=== PATIENT | female | born 1935 | race Caucasian/White ===

== ENCOUNTER → 2018-04-13 | Outpatient (CLI) | payer MEDICARE, OTHER ==
[~2018-04-13] MED LIST: ALBIPROI INH; ALBU3IS INH; ALBU90OI; AMOCLA500 PO; AMOCLA875 PO; ASPI81CH PO; AZIT250 PO; AZIT500 PO; BECL80OI INH; CALC1.25T; CARV6.25 PO; CEFTIN PO; DIGO.125 PO; DILT240ER; DULERA 200 MCG/13 GM INH; FURO20; FURO40 PO; HYDACE5 PO; INHALER FOR COPD; IPRAOI; LEVO750 PO; LISI5 PO; METPRE4DP PO; MUSCLE RELAXER; Mucinex Dm Tab1 EAC1 PO; Norco 5-325 Ta1 EACH PO; OMEP20ER PO; POTA10T PO; POTCHL10ER; PRED20 PO; PROM25 PO; TIOT18; TIOT18 IH; TOCO400; TUDORZA PRESS400 MCG IH; [UNRECOGNIZED DRUG - CODE]
[2018-04-13 12:27] LABS: BASOPHILS ABSOLUTE AUTO 0.05 K/mm3 (0.00-0.23); BASOPHILS PERCENT AUTO 1 % (0-2); EOSINOPHILS ABSOLUTE AUTO 0.07 K/mm3 (0.00-0.68); EOSINOPHILS PERCENT AUTO 1 % (0-6); Hematocrit 36.3 % (33.0-51.0); Hemoglobin 11.1 g/dL (11.5-16.0); IMMATURE GRAN ABSOLUTE AUTO 0.08 K/mm3 (0.00-0.10); IMMATURE GRAN PERCENT AUTO 1 % (0-1); LYMPHOCYTES ABSOLUTE AUTO 2.56 K/mm3 (0.84-5.20); LYMPHOCYTES PERCENT AUTO 29 % (21-46); MONOCYTES PERCENT AUTO 6 % (4-13); Mean Corpuscular HGB 24.1 pg (26.0-34.0); Mean Corpuscular HGB Conc 30.6 g/dL (31.5-36.5); Mean Corpuscular Volume 79 fL (80-100); NEUTROPHILS ABSOLUTE AUTO 5.52 K/mm3 (1.96-9.15); NEUTROPHILS PERCENT AUTO 63 % (41-73); Platelet Count 353 K/mm3 (150-400); RDW Standard Deviation 45.8 fL (35.1-46.3); White Blood Cell Count 8.78 K/mm3 (4.00-11.30)
[2018-04-13 13:13] LABS: CPK Creatine Kinase 65 U/L (26-193); Troponin I <0.015 ng/mL (0.000-0.040)
[2018-04-13 13:42] LABS: Alanine Aminotransfer (ALT/SGP 16 U/L (12-78); Albumin, Blood 3.2 g/dL (3.4-5.0); Albumin/Globulin Ratio 0.8 (0.8-1.8); Alk Phos 103 U/L (50-136); Anion Gap 8 mmol/L (6-16); Aspartate Aminotrans (AST/SGOT 14 U/L (12-37); Bilirubin, Total 0.2 mg/dL (0.1-1.0); Blood Urea Nitrogen 13 mg/dL (8-24); Bun/Creatinine Ratio 16.8 (12.0-20.0); CO2, Blood 28 mmol/L (21-32); Chloride, Blood 105 mmol/L (98-108); Creatinine, Blood 0.78 mg/dL (0.40-1.00); Globulin, Blood 3.9 g/dL (2.2-4.0); Glomerular Filtration Rate >60 (60-); Glucose, Blood 107 mg/dL (70-99); Potassium, Blood 3.7 mmol/L (3.5-5.5); Sodium, Blood 141 mmol/L (136-145); Total Protein, Blood 7.1 g/dL (6.4-8.2)
[2018-04-13 16:16] LABS: Percent Saturation 5.7 % (15.0-50.0)
== END | disposition home or self-care (01) ==
LOC: LAB EV 12:20 → LAB SHORT 12:20
PROVIDERS: General Practice
DX: D64.9 Anemia, unspecified (principal); R06.02 Shortness of breath
CPT/HCPCS: 80053; 82550; 83540; 83550; 83880; 84484; 85025

== ENCOUNTER → 2019-07-17 | Outpatient (CLI) | payer MEDICARE, OTHER ==
[2019-07-17 15:43] LABS: BASOPHILS ABSOLUTE AUTO 0.05 K/mm3 (0.00-0.23); BASOPHILS PERCENT AUTO 1 % (0-2); EOSINOPHILS ABSOLUTE AUTO 0.06 K/mm3 (0.00-0.68); EOSINOPHILS PERCENT AUTO 1 % (0-6); Hematocrit 36.1 % (33.0-51.0); Hemoglobin 11.3 g/dL (11.5-16.0); IMMATURE GRAN ABSOLUTE AUTO 0.04 K/mm3 (0.00-0.10); IMMATURE GRAN PERCENT AUTO 0 % (0-1); LYMPHOCYTES ABSOLUTE AUTO 2.79 K/mm3 (0.84-5.20); LYMPHOCYTES PERCENT AUTO 27 % (21-46); MONOCYTES ABSOLUTE AUTO 0.62 K/mm3 (0.16-1.47); MONOCYTES PERCENT AUTO 6 % (4-13); Mean Corpuscular HGB 26.6 pg (26.0-34.0); Mean Corpuscular HGB Conc 31.3 g/dL (31.5-36.5); Mean Corpuscular Volume 85 fL (80-100); Mean Platelet Volume 11.2 fL (9.1-12.4); NEUTROPHILS ABSOLUTE AUTO 6.89 K/mm3 (1.96-9.15); NEUTROPHILS PERCENT AUTO 66 % (41-73); Platelet Count 337 K/mm3 (150-400); RDW Coefficient Variation 14.3 % (11.7-14.2); Red Blood Cell Count 4.25 M/mm3 (3.80-5.20); White Blood Cell Count 10.45 K/mm3 (4.00-11.30)
[2019-07-17 15:56] LABS: Alanine Aminotransfer (ALT/SGP 15 U/L (12-78); Albumin, Blood 3.7 g/dL (3.4-5.0); Alk Phos 113 U/L (40-126); Anion Gap 9 mmol/L (6-16); Aspartate Aminotrans (AST/SGOT 14 U/L (12-37); Bilirubin, Total 0.3 mg/dL (0.1-1.0); Blood Urea Nitrogen 10 mg/dL (8-24); Bun/Creatinine Ratio 11.4 (12.0-20.0); CO2, Blood 30 mmol/L (21-32); Calcium, Blood 8.9 mg/dL (8.5-10.1); Chloride, Blood 104 mmol/L (98-108); Creatinine, Blood 0.88 mg/dL (0.40-1.00); Globulin, Blood 3.7 g/dL (2.2-4.0); Glomerular Filtration Rate >60 (60-); Glucose, Blood 109 mg/dL (70-99); Potassium, Blood 3.2 mmol/L (3.5-5.5); Sodium, Blood 143 mmol/L (136-145); Total Protein, Blood 7.4 g/dL (6.4-8.2)
[2019-07-17 16:38] LABS: Digoxin (Lanoxin) 0.89 ug/mL (0.80-2.00)
== END ==
LOC: LAB EV 15:37 → LAB SHORT 15:37
PROVIDERS: Emergency Medicine
DX: R06.00 Dyspnea, unspecified (principal); Z79.899 Other long term (current) drug therapy
CPT/HCPCS: 80053; 80162; 85025

== ENCOUNTER 2020-01-14 19:14 | Emergency (ER) | payer MEDICARE, OTHER ==
[~2020-01-14] VITALS: Ht 162.6 cm; Wt 63.5 kg
[~2020-01-14 19:14] MED LIST changes: +ALBU90OI INH; +FAMO10 PO; +FLUT1DIS2 INH; +FURO20 PO; +ROFL500T PO
[2020-01-14 19:51] LABS: BASOPHILS ABSOLUTE AUTO 0.05 K/mm3 (0.00-0.23); BASOPHILS PERCENT AUTO 1 % (0-2); EOSINOPHILS ABSOLUTE AUTO 0.08 K/mm3 (0.00-0.68); EOSINOPHILS PERCENT AUTO 1 % (0-6); Hematocrit 29.6 % (33.0-51.0); Hemoglobin 7.8 g/dL (11.5-16.0); IMMATURE GRAN ABSOLUTE AUTO 0.04 K/mm3 (0.00-0.10); IMMATURE GRAN PERCENT AUTO 0 % (0-1); LYMPHOCYTES ABSOLUTE AUTO 1.94 K/mm3 (0.84-5.20); LYMPHOCYTES PERCENT AUTO 20 % (21-46); MONOCYTES ABSOLUTE AUTO 0.54 K/mm3 (0.16-1.47); MONOCYTES PERCENT AUTO 6 % (4-13); Mean Corpuscular HGB 18.1 pg (26.0-34.0); Mean Corpuscular HGB Conc 26.4 g/dL (31.5-36.5); Mean Corpuscular Volume 69 fL (80-100); Mean Platelet Volume 9.8 fL (9.1-12.4); NEUTROPHILS ABSOLUTE AUTO 7.02 K/mm3 (1.96-9.15); NEUTROPHILS PERCENT AUTO 73 % (41-73); Platelet Count 444 K/mm3 (150-400); RDW Standard Deviation 44.3 fL (35.1-46.3); Red Blood Cell Count 4.32 M/mm3 (3.80-5.20); White Blood Cell Count 9.67 K/mm3 (4.00-11.30)
[2020-01-14 20:16] LABS: Alanine Aminotransfer (ALT/SGP 15 U/L (12-78); Albumin, Blood 3.3 g/dL (3.4-5.0); Albumin/Globulin Ratio 0.9 (0.8-1.8); Alk Phos 96 U/L (50-136); Anion Gap 6 mmol/L (6-16); Aspartate Aminotrans (AST/SGOT 13 U/L (12-37); Bilirubin, Total 0.4 mg/dL (0.1-1.0); Blood Urea Nitrogen 8 mg/dL (8-24); Bun/Creatinine Ratio 10.4 (12.0-20.0); CO2, Blood 27 mmol/L (21-32); Calcium, Blood 8.8 mg/dL (8.5-10.1); Chloride, Blood 114 mmol/L (98-108); Creatinine, Blood 0.77 mg/dL (0.40-1.00); Globulin, Blood 3.5 g/dL (2.2-4.0); Glomerular Filtration Rate >60 (60-); Glucose, Blood 95 mg/dL (70-99); Potassium, Blood 3.8 mmol/L (3.5-5.5); Sodium, Blood 147 mmol/L (136-145); Total Protein, Blood 6.8 g/dL (6.4-8.2); Troponin I <0.015 ng/mL (0.000-0.040)
[2020-01-14] MEDS ORDERED: Prednisone20 MG PO (21:41)
== END 2020-01-14 22:02 | disposition home or self-care (01) ==
LOC: ER 19:14
PROVIDERS: Physician Assistant
DX: J44.9 Chronic obstructive pulmonary disease, unspecified (principal); K21.9 Gastro-esophageal reflux disease without esophagitis; E78.5 Hyperlipidemia, unspecified; I11.0 Hypertensive heart disease with heart failure; I50.9 Heart failure, unspecified; Z87.891 Personal history of nicotine dependence; Z88.8 Allergy status to other drugs, medicaments and biological substances; Z79.899 Other long term (current) drug therapy
CPT/HCPCS: 36415; 71045; 80053; 83880; 84484; 85025; 93005; 93010; 99285-25; J7512

== ENCOUNTER 2020-02-01 16:55 | Emergency (ER) | payer MEDICARE, OTHER ==
[~2020-02-01] VITALS: Ht 162.6 cm; Wt 63.5 kg
[~2020-02-01 16:55] MED LIST changes: -FURO20 PO; +Prednisone20 MG PO
[2020-02-01 21:29] LABS: Adenovirus Not Detected (NOT DETECT); Coronavirus 229E Not Detected (NOT DETECT); Coronavirus HKU1 Not Detected (NOT DETECT); Coronavirus NL63 Not Detected (NOT DETECT); Coronavirus OC43 Not Detected (NOT DETECT); SARS-Cov-2 (COVID-19), BioFire Not Detected (NOT DETECT)
[2020-02-01 21:30] LABS: Bordetella pertussis Not Detected (NOT DETECT); Chlamydophila pneumoniae Not Detected (NOT DETECT); Human Metapneumovirus Not Detected (NOT DETECT); Human Rhinovirus/Enterovirus Not Detected (NOT DETECT); Influenza A/2009-H1 Not Detected (NOT DETECT); Influenza A/H1 Not Detected (NOT DETECT); Influenza A/H3 Not Detected (NOT DETECT); Influenza B Not Detected (NOT DETECT); Mycoplasma pneumoniae Not Detected (NOT DETECT); Parainfluenza Virus 1 Not Detected (NOT DETECT); Parainfluenza Virus 2 Not Detected (NOT DETECT); Parainfluenza Virus 3 Not Detected (NOT DETECT); Parainfluenza Virus 4 Not Detected (NOT DETECT); Respiratory Syncytial Virus Not Detected (NOT DETECT)
[2020-02-01] MEDS ORDERED: Vibramycin100 MG PO (23:28)
[2020-02-01] MEDS ORDERED: Pepcid20 MG PO (23:28)
== END 2020-02-02 00:36 | disposition home or self-care (01) ==
LOC: ER 16:55
PROVIDERS: Emergency Medicine
DX: J18.9 Pneumonia, unspecified organism (principal); J44.0 Chronic obstructive pulmonary disease with (acute) lower respiratory infection; R10.84 Generalized abdominal pain; R79.89 Other specified abnormal findings of blood chemistry; E78.5 Hyperlipidemia, unspecified; I11.0 Hypertensive heart disease with heart failure; I50.9 Heart failure, unspecified; K21.9 Gastro-esophageal reflux disease without esophagitis; Z79.899 Other long term (current) drug therapy; Z79.52 Long term (current) use of systemic steroids; Z20.828 Contact with and (suspected) exposure to other viral communicable diseases
CPT/HCPCS: 0202U; 71260; 96361; 96374; 96375; 99285-25; A9270-GY; J2405; J7030; Q9967

== ENCOUNTER 2020-02-06 19:49 | Inpatient (IN) | payer MEDICARE, OTHER ==
[~2020-02-06] VITALS: Ht 162.6 cm; Wt 67.4 kg
[~2020-02-06 19:49] MED LIST changes: +Pepcid20 MG PO; +Vibramycin100 MG PO
[2020-02-06 20:23] LABS: BASOPHILS ABSOLUTE AUTO 0.03 K/mm3 (0.00-0.23); BASOPHILS PERCENT AUTO 0 % (0-2); EOSINOPHILS ABSOLUTE AUTO 0.04 K/mm3 (0.00-0.68); EOSINOPHILS PERCENT AUTO 0 % (0-6); Hematocrit 33.9 % (33.0-51.0); Hemoglobin 9.2 g/dL (11.5-16.0); IMMATURE GRAN ABSOLUTE AUTO 0.06 K/mm3 (0.00-0.10); IMMATURE GRAN PERCENT AUTO 0 % (0-1); LYMPHOCYTES ABSOLUTE AUTO 2.36 K/mm3 (0.84-5.20); LYMPHOCYTES PERCENT AUTO 17 % (21-46); MONOCYTES ABSOLUTE AUTO 0.84 K/mm3 (0.16-1.47); MONOCYTES PERCENT AUTO 6 % (4-13); Mean Corpuscular HGB 18.1 pg (26.0-34.0); Mean Corpuscular HGB Conc 27.1 g/dL (31.5-36.5); Mean Corpuscular Volume 67 fL (80-100); NEUTROPHILS ABSOLUTE AUTO 10.32 K/mm3 (1.96-9.15); NEUTROPHILS PERCENT AUTO 76 % (41-73); Platelet Count 556 K/mm3 (150-400); RDW Coefficient Variation 18.4 % (11.7-14.2); RDW Standard Deviation 42.7 fL (35.1-46.3); Red Blood Cell Count 5.09 M/mm3 (3.80-5.20); White Blood Cell Count 13.65 K/mm3 (4.00-11.30)
[2020-02-06 20:43] LABS: Alanine Aminotransfer (ALT/SGP 15 U/L (12-78); Albumin, Blood 3.4 g/dL (3.4-5.0); Alk Phos 104 U/L (50-136); Anion Gap 10 mmol/L (6-16); Aspartate Aminotrans (AST/SGOT 8 U/L (12-37); Bilirubin, Total 0.7 mg/dL (0.1-1.0); Blood Urea Nitrogen 17 mg/dL (8-24); Bun/Creatinine Ratio 23.8 (12.0-20.0); CO2, Blood 26 mmol/L (21-32); Calcium, Blood 9.1 mg/dL (8.5-10.1); Chloride, Blood 97 mmol/L (98-108); Creatinine, Blood 0.72 mg/dL (0.40-1.00); Globulin, Blood 3.5 g/dL (2.2-4.0); Glomerular Filtration Rate >60 (60-); Glucose, Blood 96 mg/dL (70-99); Potassium, Blood 3.6 mmol/L (3.5-5.5); Sodium, Blood 133 mmol/L (136-145); Total Protein, Blood 6.9 g/dL (6.4-8.2)
[2020-02-06] MEDS ORDERED: LANOXIN125 MCG PO (22:42)
[2020-02-06] MEDS ORDERED: POTA10T PO (22:43)
[2020-02-06] MEDS ORDERED: LISI5 PO (22:43)
[2020-02-06] MEDS ORDERED: FURO40 PO (22:43)
[2020-02-06] MEDS ORDERED: HYDROCODONE-AC1 EAC9 PO (22:44)
[2020-02-06] MEDS ORDERED: FLUT1DIS5 INH (22:44)
[2020-02-06] MEDS ORDERED: ALBU90OI INH (22:45)
[2020-02-06] MEDS ORDERED: REFRESH DIGITAL10 ML BOTHEYES (22:46)
[2020-02-06 23:39] LABS: Troponin I <0.015 ng/mL (0.000-0.040)
--- NOTE | 2020-02-06 23:39 | NUR ---
transfer report from [facility] on 84 year old female being admitted for bowel obstruction. PT has abd pain N & V. Await admission. Reported GDTR with PT asked if she can accompany to floor for admission process & history.
--- NOTE | 2020-02-07 04:25 | NUR ---
Elderly Female with bowel obstruction new admitted after CO abd pain & has mass on abd CT. Full code verified, blood consent signed by PT. PT poor historian did not bring current med list. [facility] [place] 2 adult Granddaughters. Forgetful but pleasant. Possible mets has bowel obstruction. Surgical consult called by ER DR per order notation. Unaccompanied to floor by Granddaughter who was with her in ER. 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 Skin intact clean & dry except for few dry scattered warty type scaly patches. On room air sats greater than 90% PT uses oxygen & neb tx PRN at home for COPD. Nausea & abd pain intermittant. Involve Family in DC plan. NPO. Fall precautions.
[2020-02-07 05:04] LABS: BASOPHILS ABSOLUTE AUTO 0.03 K/mm3 (0.00-0.23); BASOPHILS PERCENT AUTO 0 % (0-2); EOSINOPHILS ABSOLUTE AUTO 0.01 K/mm3 (0.00-0.68); EOSINOPHILS PERCENT AUTO 0 % (0-6); Hemoglobin 8.1 g/dL (11.5-16.0); IMMATURE GRAN ABSOLUTE AUTO 0.05 K/mm3 (0.00-0.10); IMMATURE GRAN PERCENT AUTO 1 % (0-1); LYMPHOCYTES PERCENT AUTO 20 % (21-46); MONOCYTES ABSOLUTE AUTO 0.52 K/mm3 (0.16-1.47); MONOCYTES PERCENT AUTO 5 % (4-13); Mean Corpuscular Volume 67 fL (80-100); NEUTROPHILS ABSOLUTE AUTO 7.58 K/mm3 (1.96-9.15); NEUTROPHILS PERCENT AUTO 74 % (41-73); Platelet Count 515 K/mm3 (150-400); RDW Coefficient Variation 18.2 % (11.7-14.2); Red Blood Cell Count 4.51 M/mm3 (3.80-5.20); White Blood Cell Count 10.19 K/mm3 (4.00-11.30)
[2020-02-07 05:25] LABS: Anion Gap 9 mmol/L (6-16); Blood Urea Nitrogen 16 mg/dL (8-24); Bun/Creatinine Ratio 20.9 (12.0-20.0); CO2, Blood 27 mmol/L (21-32); Calcium, Blood 8.3 mg/dL (8.5-10.1); Chloride, Blood 101 mmol/L (98-108); Creatinine, Blood 0.77 mg/dL (0.40-1.00); Glomerular Filtration Rate >60 (60-); Glucose, Blood 104 mg/dL (70-99); Potassium, Blood 3.6 mmol/L (3.5-5.5); Sodium, Blood 137 mmol/L (136-145)
--- NOTE | 2020-02-07 12:44 | NUR ---
Jeff Paws warming gown applied. Surgical site prepped with 2% Chlorhexidine cloth wipe. History, Chart, Medications and Allergies reviewed before start of procedure.Lungs clear T/O to Auscultation. Patient confirms NPO status and agrees with scheduled surgery. REPORT FROM OZ SANCHEZ RN.
--- NOTE | 2020-02-07 13:08 | NUR ---
PT HAD A SURGERY TODAY, AND WILL BE TRANSFERRED TO SURGICAL DEPARTMENT.
--- NOTE | 2020-02-07 14:30 | NUR ---
PT IS IN SURGERY CURRENTLY; RECVD REPORT FROM PREVIOUS RN ON MEDICAL FLOOR; PT'S BELONGINGS TRANSFERRED TO ROOM WELL TELEMETRY BOX
--- NOTE | 2020-02-07 17:45 | NUR ---
PT TRANSFERRED TO UNIT VIA OWN BED, FAMILY VISITING PT. PT HAS EPIDURAL, ASSESSED DRESSING WNL. DERMATOMES WITH SENSATION BEGINNING AT L1, T7-L1 NO SENSATION. BASAL RATE OF 6 ML HR ON EPIDURAL. PT AWAKEN AND ORIENTED TO X 4, STATES SHE FEELS NO PAIN IN ABDOMEN, ROLLS WELL FOR EPIDURAL ASSESSMENT, JERRY DRESSING INTACT WITH 4 SPOTS OF RED SHADOWING. ACEVES CATHETER PATENT AND DRAIING CLOUDY YELLOW URINE.
--- NOTE | 2020-02-08 06:37 | NUR ---
SHIFT SUMMARY: IRVIN AROUSES EASILY AND RESPONDS APPROPRIATELY. SHE DID REPORT SEEING "BUGS" IN HER ROOM THIS MORNING, BUT ALSO STATES THAT SHE UNDERSTANDS THEY ARE NOT REALLY THERE. VSS, NO ACUTE EVENTS OVERNIGHT. SHE REPORTS GOOD PAIN CONTROL WITH THE EPIDURAL. SHE USES THE OPERATIONS MANAGER/COORDINATOR WITHOUT DIFFICULTY. ILEOSTOMY PUTTING OUT LIQUID, BROWN STOOL. SHE COMPLAINS OF SORE THROAT AND DRY MOUTH, SWABS PROVIDED. JERRY TO MIDLINE WITH SMALL AMNT DRAINAGE. ACEVES DRAINING CLOUDY, YELLOW URINE. SHE IS ABLE TO MAKE HER NEEDS KNOWN, VERY PLEASANT AND COOPERATIVE. SHE IS LYING IN BED WITH THE CALL LIGHT IN REACH. WILL REPORT TO DAY SHIFT RN.
--- NOTE | 2020-02-08 07:25 | NUR ---
PT SLEEPING WAKES TO VERBAL STIMULI PT REPORTS SOME PAIN R/T HER THROAT FROM THE NGT MIN DRAINAGE IN CANNISTER ANESTHESIA BY EARLIER
--- NOTE | 2020-02-08 09:31 | NUR ---
PT'S JOSE CALLLED UPDATE GIVEN
--- NOTE | 2020-02-08 11:40 | NUR ---
DR CENTENO BY TO SEE PT
--- NOTE | 2020-02-08 14:30 | NUR ---
PT OOB IN RECLINER RESTING
--- NOTE | 2020-02-08 16:00 | NUR ---
ASSISTED INTO BED
--- NOTE | 2020-02-09 18:10 | NUR ---
SUMMARY: PT IS POD2 R HEMICOLECTOMY WITH ILEOSTOMY. NO ACUTE CHANGE TODAY. VSS, A/O. MOVES WELL FROM BED TO RECLINER. EPIDURAL CONTINUES TO BE WNL, AND MANAGING PAIN WELL. PLAN TO DC EPIDURAL TOMORROW. SURGICAL SITES WNL. BROWN LIQ STOOL FROM OSTOMY. PT ABLE TO EAT CLEAR LIQ, PLAN TO ADVANCE DIET SLOWLY PER ORDER. PT HAS DENIED N/V. NO ACUTE SAFETY CONCERNS AT THIS TIME. WILL REPORT TO HIMA GREGORIO.
[2020-02-10 05:39] LABS: BASOPHILS ABSOLUTE AUTO 0.04 K/mm3 (0.00-0.23); BASOPHILS PERCENT AUTO 1 % (0-2); EOSINOPHILS ABSOLUTE AUTO 0.11 K/mm3 (0.00-0.68); EOSINOPHILS PERCENT AUTO 1 % (0-6); Hematocrit 29.6 % (33.0-51.0); Hemoglobin 7.8 g/dL (11.5-16.0); IMMATURE GRAN ABSOLUTE AUTO 0.05 K/mm3 (0.00-0.10); IMMATURE GRAN PERCENT AUTO 1 % (0-1); LYMPHOCYTES ABSOLUTE AUTO 1.68 K/mm3 (0.84-5.20); LYMPHOCYTES PERCENT AUTO 22 % (21-46); MONOCYTES ABSOLUTE AUTO 0.52 K/mm3 (0.16-1.47); MONOCYTES PERCENT AUTO 7 % (4-13); Mean Corpuscular HGB 18.1 pg (26.0-34.0); Mean Corpuscular HGB Conc 26.4 g/dL (31.5-36.5); Mean Corpuscular Volume 69 fL (80-100); Mean Platelet Volume 9.6 fL (9.1-12.4); NEUTROPHILS PERCENT AUTO 69 % (41-73); Platelet Count 369 K/mm3 (150-400); RDW Coefficient Variation 18.5 % (11.7-14.2); RDW Standard Deviation 45.2 fL (35.1-46.3)
[2020-02-10 05:59] LABS: Anion Gap 6 mmol/L (6-16); Blood Urea Nitrogen 7 mg/dL (8-24); Bun/Creatinine Ratio 10.9 (12.0-20.0); CO2, Blood 26 mmol/L (21-32); Calcium, Blood 8.1 mg/dL (8.5-10.1); Chloride, Blood 110 mmol/L (98-108); Creatinine, Blood 0.64 mg/dL (0.40-1.00); Glomerular Filtration Rate >60 (60-); Glucose, Blood 98 mg/dL (70-99); Potassium, Blood 3.5 mmol/L (3.5-5.5); Sodium, Blood 142 mmol/L (136-145)
--- NOTE | 2020-02-10 06:00 | NUR ---
SHIFT SUMMARY AAO X4, BUT IS VERY [place]. STATES PAIN REMAINS AT 2/10, EPIDURAL CONT WITH DEMAND INFUSING PER MD ORDERS, WILL BE TURNED OFF AT 0700HRS PER NURSE NOTIFY ORDER. IT IS TO BE D/C'D TODAY. ACEVES CATH IS TO BE D/C'D WELL. STATES THAT SHE HAS RESTED WELL LYING IN THE CHAIR THIS SHIFT, AND IS FEELING GOOD. DENIES FURTHER NEEDS OR WANTS AT THIS TIME. SAFETY MEASURES IN PLACE. WILL CONTINUE TO MONITOR AND GIVE HAND OFF TO ONCOMING SHIFT USING SBAR.
--- NOTE | 2020-02-10 07:44 | NUR ---
EPIDURAL INFUSION STOPED AT THIS TIME PER ORDER
--- NOTE | 2020-02-10 14:34 | NUR ---
DR. AUTUMN ALLRED'D EPIDURAL AT ABOUT 1130. KETAN ALLRED'D AT 1430, AWAITING 1ST VOID.
--- NOTE | 2020-02-10 17:18 | NUR ---
SUMMARY: PT IS POD3 R [place] COLECTOMY. NO ACUTE CHANGE TODAY. VSS, HAS SLEPT OFF AND ON TODAY, AWAKENS EASILY. PT IS OFTEN FORGETFUL, NEEDS REORIENTED, BED ALARM ON FOR SAFETY. SURGICAL SITES WNL. ILOSTOMY DRAINING BROWN LIQ STOOL, AND. PT TOLERATING FULL LIQ DIET TODAY, DENIES N/V, OK TO ADVANCE. PT HAS VOIDED SINCE ACEVES REMOVAL, GETS TO COMMODE WITH 1 ASSIST. PAIN SEEMS TO BE MANAGED WITH 1 NARCO Q4. NO ACUTE SAFETY CONCERNS, WILL REPORT TO HIMA GREGORIO.
[2020-02-11 04:50] LABS: BASOPHILS ABSOLUTE AUTO 0.05 K/mm3 (0.00-0.23); BASOPHILS PERCENT AUTO 1 % (0-2); EOSINOPHILS ABSOLUTE AUTO 0.12 K/mm3 (0.00-0.68); EOSINOPHILS PERCENT AUTO 1 % (0-6); Hematocrit 28.7 % (33.0-51.0); Hemoglobin 7.7 g/dL (11.5-16.0); IMMATURE GRAN ABSOLUTE AUTO 0.05 K/mm3 (0.00-0.10); IMMATURE GRAN PERCENT AUTO 1 % (0-1); LYMPHOCYTES ABSOLUTE AUTO 1.98 K/mm3 (0.84-5.20); LYMPHOCYTES PERCENT AUTO 18 % (21-46); MONOCYTES ABSOLUTE AUTO 0.57 K/mm3 (0.16-1.47); MONOCYTES PERCENT AUTO 5 % (4-13); Mean Corpuscular HGB 18.2 pg (26.0-34.0); Mean Corpuscular HGB Conc 26.8 g/dL (31.5-36.5); Mean Corpuscular Volume 68 fL (80-100); Mean Platelet Volume 9.7 fL (9.1-12.4); NEUTROPHILS PERCENT AUTO 75 % (41-73); Platelet Count 368 K/mm3 (150-400); RDW Coefficient Variation 18.4 % (11.7-14.2); RDW Standard Deviation 44.2 fL (35.1-46.3); Red Blood Cell Count 4.24 M/mm3 (3.80-5.20); White Blood Cell Count 10.87 K/mm3 (4.00-11.30)
[2020-02-11 05:07] LABS: Anion Gap 5 mmol/L (6-16); Blood Urea Nitrogen 6 mg/dL (8-24); Bun/Creatinine Ratio 9.9 (12.0-20.0); CO2, Blood 27 mmol/L (21-32); Calcium, Blood 7.9 mg/dL (8.5-10.1); Chloride, Blood 111 mmol/L (98-108); Creatinine, Blood 0.61 mg/dL (0.40-1.00); Glomerular Filtration Rate >60 (60-); Glucose, Blood 104 mg/dL (70-99); Potassium, Blood 3.7 mmol/L (3.5-5.5); Sodium, Blood 143 mmol/L (136-145)
--- NOTE | 2020-02-11 06:09 | NUR ---
SHIFT SUMMARY AAO X4, BUT IS VERY [place]. CAEVES CATH WAS D/C'D, SHE IS URINATING IN COMMODE AFTER AMBULATING. STATES THAT SHE HAS RESTED WELL SIINCE BEING MOVED TO ROOM 226, AND IS FEELING GOOD. MIDLINE DRESSING IS C/D/I, DRESSING IS DECOMPRESSED. DENIES FURTHER NEEDS OR WANTS AT THIS TIME. SAFETY MEASURES IN PLACE. WILL CONTINUE TO MONITOR AND GIVE HAND OFF TO ONCOMING SHIFT USING SBAR.
--- NOTE | 2020-02-11 12:02 | NUR ---
PT GAVE THIS SRN PERMISSION TO PROVIDE CARE ON 02/11/20.
--- NOTE | 2020-02-11 18:39 | NUR ---
SHIFT SUMMARY SPOKE TO GRANDDAUGHTER ABOUT FREQ OF OSTOMY CARE NEEDED, STARTED SMALL AMOUNT OF OSTOMY EDUCATION W/ GRANDDAUGHTER. PT IS NOT INTERESTED IN LEARNING SELF CARE OF OSTOMY. HAS STATED THIS MANY TIMES TODAY. INFORMED GRANDDAUGHTER OF THIS TODAY. OTHER THAN THAT, PT IS DOING WELL. TOLERATING FULL LQS. WILL ADVANCE IN AM. OSTOMY PRODUCING. UP TO CHAIR AND UP IN ROOM.
[2020-02-12 03:51] LABS: BASOPHILS ABSOLUTE AUTO 0.04 K/mm3 (0.00-0.23); BASOPHILS PERCENT AUTO 0 % (0-2); EOSINOPHILS ABSOLUTE AUTO 0.02 K/mm3 (0.00-0.68); EOSINOPHILS PERCENT AUTO 0 % (0-6); Hematocrit 27.3 % (33.0-51.0); Hemoglobin 7.3 g/dL (11.5-16.0); IMMATURE GRAN ABSOLUTE AUTO 0.09 K/mm3 (0.00-0.10); IMMATURE GRAN PERCENT AUTO 1 % (0-1); LYMPHOCYTES ABSOLUTE AUTO 1.66 K/mm3 (0.84-5.20); LYMPHOCYTES PERCENT AUTO 9 % (21-46); MONOCYTES ABSOLUTE AUTO 0.86 K/mm3 (0.16-1.47); MONOCYTES PERCENT AUTO 5 % (4-13); Mean Corpuscular HGB 17.8 pg (26.0-34.0); Mean Corpuscular HGB Conc 26.7 g/dL (31.5-36.5); Mean Corpuscular Volume 66 fL (80-100); Mean Platelet Volume 9.8 fL (9.1-12.4); NEUTROPHILS ABSOLUTE AUTO 15.75 K/mm3 (1.96-9.15); NEUTROPHILS PERCENT AUTO 86 % (41-73); Platelet Count 351 K/mm3 (150-400); RDW Coefficient Variation 18.4 % (11.7-14.2); RDW Standard Deviation 43.6 fL (35.1-46.3); Red Blood Cell Count 4.11 M/mm3 (3.80-5.20); White Blood Cell Count 18.42 K/mm3 (4.00-11.30)
[2020-02-12 04:08] LABS: Alanine Aminotransfer (ALT/SGP 15 U/L (12-78); Albumin, Blood 2.2 g/dL (3.4-5.0); Albumin/Globulin Ratio 0.8 (0.8-1.8); Alk Phos 91 U/L (50-136); Anion Gap 5 mmol/L (6-16); Aspartate Aminotrans (AST/SGOT 8 U/L (12-37); Bilirubin, Total 0.5 mg/dL (0.1-1.0); Blood Urea Nitrogen 8 mg/dL (8-24); Bun/Creatinine Ratio 14.2 (12.0-20.0); CO2, Blood 29 mmol/L (21-32); Chloride, Blood 106 mmol/L (98-108); Creatinine, Blood 0.57 mg/dL (0.40-1.00); Globulin, Blood 2.8 g/dL (2.2-4.0); Glomerular Filtration Rate >60 (60-); Glucose, Blood 124 mg/dL (70-99); Magnesium, Blood 1.8 mg/dL (1.6-2.4); Phosphorus, Blood 2.9 mg/dL (2.5-4.9); Potassium, Blood 3.6 mmol/L (3.5-5.5); Sodium, Blood 140 mmol/L (136-145)
[2020-02-12 04:12] LABS: Percent Saturation 2.9 % (15.0-50.0)
--- NOTE | 2020-02-12 04:45 | NUR ---
SHIFT SUMMARY POD 5 HEMICOLECTOMY WITH ILEOSTOMY. STOMA ROUND AND BEEFY RED IN COLOR. OSTOMY PRODUCING BROWN/GREEN LIQUID STOOL; APPLIANCE APPEARS CDI. PT UNINTERESTED IN OSTOMY CARE AT THIS POINT, HOWEVER IS ASKING QUESTIONS RELATED TO IT. JERRY TO MIDLINE IN PLACE, APPEARS CDI W/OUT DRAINAGE. PAIN MANAGED WITH 1 TAB PO NORCO. ON 3L NC WITH SPO2 AT 94%, ENCOURAGED FREQUENT T/C/DB WITH SPLINTING- PT ABLE TO DEMONSTRATE. HR SR W/PVC'S AT 93 BPM- PER PARKING REGULATION ENFORCEMENT OFFICER. UP TO BATHROOM WITH FWW/GB/1ASSIST. PT IS CURRENTLY RESTING IN BED WITH CALL LIGHT IN REACH AND BED ALARM ON FOR SAFETY. WILL CONT TO MONITOR AND GIVE REPORT TO ONCOMING RN.
--- NOTE | 2020-02-12 16:49 | NUR ---
DISCHARGE SUMMARY PT A&OX3, VSS, TELE ST @ 110, LEFT FLOOR VIA WC WITH GRANDDAUGHTER TO GO HOME, WITH ALL PERSONAL POSSESSIONS INCLUDING DC PACKET AND 1 NARC SCRIPT. DC INSTRUCTIONS PROVIDED. PT AND GRANDDAUGHTER REP UNDERSTANDING INSTRUCTIONS INCLUDING FU WITH SURGEON, PCP, HOMEHEALTH RN; GRDAUGHTER SHOWN HOW TO EMPTY OSTOMY AND CHANGE MEDIPORE DRESSINGS. IV DC'D.
== END 2020-02-12 16:25 | disposition home or self-care (01) | DRG 329 ==
LOC: ER 19:49 → MEDS 22:36 → SURS 22:36 → MEDS 02-07 00:05 → SURS 02-07 13:40
PROVIDERS: Emergency Medicine; Hospitalist; Internal Medicine; Surgery; ADMIT Family Medicine
PROC: 0DTF0ZZ Resection of Right Large Intestine, Open Approach (ICD-10-PCS; principal; 2020-02-07 12:45)
PROC: 0D1B0Z4 Bypass Ileum to Cutaneous, Open Approach (ICD-10-PCS; 2020-02-07 12:45)
DX: C19 Malignant neoplasm of rectosigmoid junction (principal); J18.9 Pneumonia, unspecified organism; C78.6 Secondary malignant neoplasm of retroperitoneum and peritoneum; D62 Acute posthemorrhagic anemia; J44.9 Chronic obstructive pulmonary disease, unspecified; Z87.891 Personal history of nicotine dependence; Z20.828 Contact with and (suspected) exposure to other viral communicable diseases; E78.5 Hyperlipidemia, unspecified; M54.9 Dorsalgia, unspecified; G89.29 Other chronic pain; I50.9 Heart failure, unspecified; I11.0 Hypertensive heart disease with heart failure
CPT/HCPCS: 36415; 74177; 80048; 80053; 82728; 83540; 83550; 83690; 83735; 84100; 84484; 85025; 88305; 88309; 88342; 94640; 94667; 94760; 96374; 96374-59; 96375; 96375-59; 97110; 97116; 97162; 97165; 97535; 99284-25; A9270-GY; C9113; J1100; J1650; J2270; J2370; J2405; J2543; J2704; J3010; J7030; J7120; Q9967; U0003

== ENCOUNTER → 2020-02-27 | Outpatient (CLI) | payer MEDICARE, OTHER ==
[~2020-02-27] MED LIST changes: +FLUT1DIS5 INH; +HYDROCODONE-AC1 EAC9 PO; +LANOXIN125 MCG PO; +REFRESH DIGITAL10 ML BOTHEYES
[2020-02-27 15:02] LABS: BASOPHILS ABSOLUTE AUTO 0.04 K/mm3 (0.00-0.23); BASOPHILS PERCENT AUTO 0 % (0-2); EOSINOPHILS ABSOLUTE AUTO 0.01 K/mm3 (0.00-0.68); EOSINOPHILS PERCENT AUTO 0 % (0-6); Hematocrit 28.7 % (33.0-51.0); Hemoglobin 7.9 g/dL (11.5-16.0); IMMATURE GRAN ABSOLUTE AUTO 0.12 K/mm3 (0.00-0.10); IMMATURE GRAN PERCENT AUTO 1 % (0-1); LYMPHOCYTES ABSOLUTE AUTO 3.29 K/mm3 (0.84-5.20); LYMPHOCYTES PERCENT AUTO 21 % (21-46); MONOCYTES ABSOLUTE AUTO 1.04 K/mm3 (0.16-1.47); MONOCYTES PERCENT AUTO 7 % (4-13); Mean Corpuscular HGB Conc 27.5 g/dL (31.5-36.5); Mean Corpuscular Volume 65 fL (80-100); Mean Platelet Volume 9.6 fL (9.1-12.4); NEUTROPHILS ABSOLUTE AUTO 11.12 K/mm3 (1.96-9.15); NEUTROPHILS PERCENT AUTO 71 % (41-73); Platelet Count 531 K/mm3 (150-400); RDW Coefficient Variation 19.6 % (11.7-14.2); RDW Standard Deviation 44.9 fL (35.1-46.3); Red Blood Cell Count 4.39 M/mm3 (3.80-5.20); White Blood Cell Count 15.62 K/mm3 (4.00-11.30)
[2020-02-27 15:11] LABS: Albumin, Blood 3.3 g/dL (3.4-5.0); Albumin/Globulin Ratio 0.9 (0.8-1.8); Bilirubin, Total 0.6 mg/dL (0.1-1.0); Bun/Creatinine Ratio 12.2 (12.0-20.0); Calcium, Blood 9.1 mg/dL (8.5-10.1); Creatinine, Blood 1.15 mg/dL (0.40-1.00); Globulin, Blood 3.8 g/dL (2.2-4.0); Total Protein, Blood 7.1 g/dL (6.4-8.2)
[2020-02-29 17:11] LABS: CORONAVIRUS (COVID19) CSH-NRL Negative (Negative)
== END | disposition home or self-care (01) ==
LOC: LAB EV 14:58 → LAB SHORT 14:58
PROVIDERS: Physician Assistant
DX: R10.9 Unspecified abdominal pain (principal); R50.9 Fever, unspecified; Z20.828 Contact with and (suspected) exposure to other viral communicable diseases
CPT/HCPCS: 80053; 83690; 85025; U0003

== ENCOUNTER 2020-03-12 16:34 | Emergency (ER) | payer MEDICARE, OTHER ==
[~2020-03-12] VITALS: Ht 167.6 cm; Wt 62.6 kg
[2020-03-12 17:20] LABS: BASOPHILS ABSOLUTE AUTO 0.08 K/mm3 (0.00-0.23); BASOPHILS PERCENT AUTO 1 % (0-2); EOSINOPHILS ABSOLUTE AUTO 0.05 K/mm3 (0.00-0.68); EOSINOPHILS PERCENT AUTO 1 % (0-6); Hematocrit 40.8 % (33.0-51.0); Hemoglobin 10.8 g/dL (11.5-16.0); IMMATURE GRAN ABSOLUTE AUTO 0.03 K/mm3 (0.00-0.10); IMMATURE GRAN PERCENT AUTO 0 % (0-1); LYMPHOCYTES ABSOLUTE AUTO 3.47 K/mm3 (0.84-5.20); LYMPHOCYTES PERCENT AUTO 38 % (21-46); MONOCYTES ABSOLUTE AUTO 0.52 K/mm3 (0.16-1.47); MONOCYTES PERCENT AUTO 6 % (4-13); Mean Corpuscular HGB 19.7 pg (26.0-34.0); Mean Corpuscular HGB Conc 26.5 g/dL (31.5-36.5); Mean Corpuscular Volume 75 fL (80-100); NEUTROPHILS PERCENT AUTO 54 % (41-73); Platelet Count 287 K/mm3 (150-400); RDW Coefficient Variation 26.8 % (11.7-14.2); RDW Standard Deviation 69.6 fL (35.1-46.3); Red Blood Cell Count 5.48 M/mm3 (3.80-5.20); White Blood Cell Count 9.05 K/mm3 (4.00-11.30)
[2020-03-12 17:37] LABS: Alanine Aminotransfer (ALT/SGP 15 U/L (12-78); Albumin, Blood 4.1 g/dL (3.4-5.0); Albumin/Globulin Ratio 1.2 (0.8-1.8); Alk Phos 103 U/L (50-136); Anion Gap 5 mmol/L (6-16); Aspartate Aminotrans (AST/SGOT 12 U/L (12-37); Bilirubin, Total 0.6 mg/dL (0.1-1.0); Blood Urea Nitrogen 13 mg/dL (8-24); Bun/Creatinine Ratio 15.4 (12.0-20.0); CO2, Blood 30 mmol/L (21-32); Calcium, Blood 9.8 mg/dL (8.5-10.1); Chloride, Blood 109 mmol/L (98-108); Creatinine, Blood 0.85 mg/dL (0.40-1.00); Globulin, Blood 3.3 g/dL (2.2-4.0); Glomerular Filtration Rate >60 (60-); Glucose, Blood 117 mg/dL (70-99); Potassium, Blood 4.2 mmol/L (3.5-5.5); Sodium, Blood 144 mmol/L (136-145); Total Protein, Blood 7.4 g/dL (6.4-8.2)
== END 2020-03-12 21:04 | disposition left against medical advice (07) ==
LOC: ER 16:34
PROVIDERS: Physician Assistant
DX: D53.9 Nutritional anemia, unspecified (principal); R42 Dizziness and giddiness; E78.5 Hyperlipidemia, unspecified; I11.0 Hypertensive heart disease with heart failure; I50.9 Heart failure, unspecified; K21.9 Gastro-esophageal reflux disease without esophagitis; J44.9 Chronic obstructive pulmonary disease, unspecified; Z88.8 Allergy status to other drugs, medicaments and biological substances; Z79.899 Other long term (current) drug therapy; Z87.891 Personal history of nicotine dependence
CPT/HCPCS: 80053; 85025; 86850; 86900; 86901; 93005; 93010; 99284-25

== ENCOUNTER 2020-03-18 06:07 | Day surgery (SDC) | payer MEDICARE, OTHER ==
[~2020-03-18] VITALS: Ht 162.6 cm; Wt 62.4 kg
--- NOTE | 2020-03-18 06:56 | NUR ---
History, Chart, Medications and Allergies reviewed before start of procedure. Lungs clear T/O to Auscultation after clearing congestion in chest. Denies SOB. Pre-Op teaching done. Pt verbalizes understanding.
--- NOTE | 2020-03-18 09:36 | NUR ---
Discharge instructions reviewed with patient. Patient verbalizes understanding. Copy given to patient to take home. Patient States Post-Procedure ride home has been arranged. Discharged via wheelchair to private car for ride home.
== END 2020-03-18 23:41 | disposition home or self-care (01) ==
LOC: ORSCMMR 06:07 → ORD 06:07
PROVIDERS: Surgery
PROC: B5131ZA Fluoroscopy of Right Jugular Veins using Low Osmolar Contrast, Guidance (ICD-10-PCS; principal; 2020-03-18 07:30)
PROC: 05HM33Z Insertion of Infusion Device into Right Internal Jugular Vein, Percutaneous Approach (ICD-10-PCS; principal; 2020-03-18 07:30)
DX: C18.2 Malignant neoplasm of ascending colon (principal); I10 Essential (primary) hypertension; J44.9 Chronic obstructive pulmonary disease, unspecified; Z79.899 Other long term (current) drug therapy
CPT/HCPCS: 77001; C1788; J0461; J0690; J1642; J2250; J2704; J3010; J7120

== ENCOUNTER 2020-04-08 18:32 | Emergency (ER) | payer MEDICARE, OTHER ==
[~2020-04-08] VITALS: Ht 162.6 cm; Wt 60.3 kg
[2020-04-08] MEDS ORDERED: ONDA4 PO (18:52)
[2020-04-08 19:45] LABS: Calcium, Ionized (POC) 1.17 mmol/L (1.10-1.46); Chloride (POC) 99 mmol/L (98-108); Creatinine (POC) 1.2 mg/dL (0.6-1.0); Glucose (ISTAT POC) 134 mg/dL (70-99); Hemoglobin (POC) 14.3 g/dL (12.0-16.0); Potassium (POC) 3.8 mmol/L (3.5-5.5); Sodium (POC) 136 mmol/L (135-148); Total CO2 (POC) 26 mmol/L (21-32)
== END 2020-04-08 21:02 | disposition home or self-care (01) ==
LOC: ER 18:32
PROVIDERS: Emergency Medicine
DX: I95.2 Hypotension due to drugs (principal); T46.4X5A Adverse effect of angiotensin-converting-enzyme inhibitors, initial encounter; J44.9 Chronic obstructive pulmonary disease, unspecified; I11.0 Hypertensive heart disease with heart failure; I50.9 Heart failure, unspecified; E78.5 Hyperlipidemia, unspecified; C18.9 Malignant neoplasm of colon, unspecified; K21.9 Gastro-esophageal reflux disease without esophagitis; F17.210 Nicotine dependence, cigarettes, uncomplicated; Z51.11 Encounter for antineoplastic chemotherapy; Z79.899 Other long term (current) drug therapy
CPT/HCPCS: 80047; 85014; 93005; 93010; 96360; 99285-25; J7030

== ENCOUNTER 2020-05-02 11:35 | Emergency (ER) | payer MEDICARE, OTHER ==
[~2020-05-02] VITALS: Ht 162.6 cm; Wt 65.8 kg
[~2020-05-02 11:35] MED LIST changes: -HYDROCODONE-AC1 EAC9 PO
[2020-05-02 12:38] LABS: BASOPHILS ABSOLUTE AUTO 0.04 K/mm3 (0.00-0.23); BASOPHILS PERCENT AUTO 1 % (0-2); EOSINOPHILS ABSOLUTE AUTO 0.05 K/mm3 (0.00-0.68); EOSINOPHILS PERCENT AUTO 1 % (0-6); Hemoglobin 15.6 g/dL (11.5-16.0); IMMATURE GRAN ABSOLUTE AUTO 0.02 K/mm3 (0.00-0.10); IMMATURE GRAN PERCENT AUTO 0 % (0-1); LYMPHOCYTES ABSOLUTE AUTO 2.74 K/mm3 (0.84-5.20); LYMPHOCYTES PERCENT AUTO 42 % (21-46); MONOCYTES ABSOLUTE AUTO 0.06 K/mm3 (0.16-1.47); MONOCYTES PERCENT AUTO 1 % (4-13); Mean Corpuscular HGB 28.1 pg (26.0-34.0); Mean Corpuscular HGB Conc 32.5 g/dL (31.5-36.5); Mean Corpuscular Volume 87 fL (80-100); Mean Platelet Volume 9.9 fL (9.1-12.4); NEUTROPHILS ABSOLUTE AUTO 3.58 K/mm3 (1.96-9.15); NEUTROPHILS PERCENT AUTO 55 % (41-73); Platelet Count 207 K/mm3 (150-400); RDW Coefficient Variation 25.2 % (11.7-14.2); RDW Standard Deviation 75.8 fL (35.1-46.3); Red Blood Cell Count 5.55 M/mm3 (3.80-5.20); White Blood Cell Count 6.49 K/mm3 (4.00-11.30)
[2020-05-02 12:52] LABS: International Normalized Ratio 0.91; Prothrombin Time Results 9.8 Sec (9.7-11.5)
[2020-05-02 13:01] LABS: Alanine Aminotransfer (ALT/SGP 20 U/L (12-78); Albumin, Blood 3.5 g/dL (3.4-5.0); Alk Phos 103 U/L (50-136); Anion Gap 8 mmol/L (6-16); Aspartate Aminotrans (AST/SGOT 28 U/L (12-37); Bilirubin, Total 0.6 mg/dL (0.1-1.0); Blood Urea Nitrogen 17 mg/dL (8-24); Bun/Creatinine Ratio 21.3 (12.0-20.0); CO2, Blood 26 mmol/L (21-32); Calcium, Blood 9.3 mg/dL (8.5-10.1); Chloride, Blood 102 mmol/L (98-108); Globulin, Blood 3.4 g/dL (2.2-4.0); Glomerular Filtration Rate >60 (60-); Glucose, Blood 134 mg/dL (70-99); Sodium, Blood 136 mmol/L (136-145); Total Protein, Blood 6.9 g/dL (6.4-8.2)
[2020-05-02 14:06] LABS: Influenza A, PCR Negative (NEGATIVE); Influenza B, PCR Negative (NEGATIVE); Resp Syncytial Virus, PCR Negative (NEGATIVE); SARS-Cov-2 (COVID-19) PCR, MMC Negative (NEGATIVE)
== END 2020-05-02 15:06 | disposition home or self-care (01) ==
LOC: ER 11:35
PROVIDERS: Physician Assistant
DX: E86.1 Hypovolemia (principal); I11.0 Hypertensive heart disease with heart failure; I50.9 Heart failure, unspecified; J44.9 Chronic obstructive pulmonary disease, unspecified; C18.9 Malignant neoplasm of colon, unspecified; K21.9 Gastro-esophageal reflux disease without esophagitis; F17.210 Nicotine dependence, cigarettes, uncomplicated; Z20.822 Contact with and (suspected) exposure to COVID-19
CPT/HCPCS: 0241U; 36415; 71045; 80053; 83605; 83690; 85025; 85610; 85730; 87040; 93005; 93010; 96361; 96374; 99285-25; J2405; J7030

== ENCOUNTER 2020-06-03 14:39 | Inpatient (IN) | payer MEDICARE, OTHER ==
[~2020-06-03] VITALS: Ht 162.6 cm; Wt 50.7 kg
[2020-06-03 15:39] LABS: EOSINOPHILS ABSOLUTE AUTO 0.02 K/mm3 (0.00-0.68); EOSINOPHILS PERCENT AUTO 0 % (0-6); Hematocrit 54.5 % (33.0-51.0); Hemoglobin 18.5 g/dL (11.5-16.0); IMMATURE GRAN PERCENT AUTO 4 % (0-1); LYMPHOCYTES ABSOLUTE AUTO 4.16 K/mm3 (0.84-5.20); LYMPHOCYTES PERCENT AUTO 13 % (21-46); MONOCYTES ABSOLUTE AUTO 2.07 K/mm3 (0.16-1.47); MONOCYTES PERCENT AUTO 7 % (4-13); Mean Corpuscular HGB 29.8 pg (26.0-34.0); Mean Corpuscular HGB Conc 33.9 g/dL (31.5-36.5); Mean Corpuscular Volume 88 fL (80-100); Mean Platelet Volume 9.6 fL (9.1-12.4); NEUTROPHILS ABSOLUTE AUTO 23.86 K/mm3 (1.96-9.15); NEUTROPHILS PERCENT AUTO 76 % (41-73); Platelet Count 325 K/mm3 (150-400); RDW Coefficient Variation 21.8 % (11.7-14.2); RDW Standard Deviation 70.7 fL (35.1-46.3); Red Blood Cell Count 6.21 M/mm3 (3.80-5.20); White Blood Cell Count 31.45 K/mm3 (4.00-11.30)
[2020-06-03 15:41] LABS: BASOPHILS ABSOLUTE AUTO 0.04 K/mm3 (0.00-0.23); BASOPHILS PERCENT AUTO 0 % (0-2)
[2020-06-03 16:13] LABS: Alanine Aminotransfer (ALT/SGP 25 U/L (12-78); Albumin, Blood 3.7 g/dL (3.4-5.0); Albumin/Globulin Ratio 0.9 (0.8-1.8); Alk Phos 163 U/L (50-136); Anion Gap 11 mmol/L (6-16); Aspartate Aminotrans (AST/SGOT 28 U/L (12-37); Bilirubin, Total 0.9 mg/dL (0.1-1.0); Blood Urea Nitrogen 52 mg/dL (8-24); Bun/Creatinine Ratio 43.3 (12.0-20.0); CO2, Blood 23 mmol/L (21-32); Calcium, Blood 9.7 mg/dL (8.5-10.1); Chloride, Blood 94 mmol/L (98-108); Globulin, Blood 4.1 g/dL (2.2-4.0); Glomerular Filtration Rate 45 (60-); Glucose, Blood 154 mg/dL (70-99); Potassium, Blood 4.9 mmol/L (3.5-5.5); Sodium, Blood 128 mmol/L (136-145); Total Protein, Blood 7.8 g/dL (6.4-8.2); Troponin I <0.015 ng/mL (0.000-0.040)
[2020-06-03] MEDS ORDERED: OMEP20ER PO (16:43)
[2020-06-03] MEDS ORDERED: ONDA8 PO (16:44)
[2020-06-03 17:04] LABS: C-REACTIVE PROTEIN, EXT RANGE 1.88 mg/dL (0.000-0.300)
[2020-06-03] MEDS ORDERED: ACET500 PT (17:32)
[2020-06-03] MEDS ORDERED: A AND D OINTM42.5 GM TOP (17:35)
[2020-06-03] MEDS ORDERED: Norco 7.5-3251 EACH PO (17:36)
[2020-06-03] MEDS ORDERED: SUCRALFATE PO (17:37)
[2020-06-03] MEDS ORDERED: DEXA4 PO (17:37)
[2020-06-03 21:39] LABS: Adenovirus Not Detected (NOT DETECT); Bordetella pertussis Not Detected (NOT DETECT); Chlamydophila pneumoniae Not Detected (NOT DETECT); Coronavirus 229E Not Detected (NOT DETECT); Coronavirus HKU1 Not Detected (NOT DETECT); Coronavirus NL63 Not Detected (NOT DETECT); Coronavirus OC43 Not Detected (NOT DETECT); Human Metapneumovirus Not Detected (NOT DETECT); Human Rhinovirus/Enterovirus Detected (NOT DETECT); Influenza A/2009-H1 Not Detected (NOT DETECT); Influenza A/H1 Not Detected (NOT DETECT); Influenza A/H3 Not Detected (NOT DETECT); Influenza B Not Detected (NOT DETECT); Mycoplasma pneumoniae Not Detected (NOT DETECT); Parainfluenza Virus 1 Not Detected (NOT DETECT); Parainfluenza Virus 2 Not Detected (NOT DETECT); Parainfluenza Virus 3 Not Detected (NOT DETECT); Parainfluenza Virus 4 Not Detected (NOT DETECT); Respiratory Syncytial Virus Not Detected (NOT DETECT); SARS-Cov-2 (COVID-19), BioFire Not Detected (NOT DETECT)
--- NOTE | 2020-06-03 21:53 | NUR ---
ADMIT ARRIVED TO ROOM 303 @2135, SLIDE TRANSFER TO NEW BED. ON 4L O2 VIA OXIMIZER. DYSPNIC, PAUSING BETWEEN TALKING. PLACED ON ISOLATION FOR R/O COVID. SHOWED HOW TO USE CALL LIGHT. WILL MONITOR.
[2020-06-04 01:14] LABS: BASOPHILS ABSOLUTE AUTO 0.16 K/mm3 (0.00-0.23); BASOPHILS PERCENT AUTO 1 % (0-2); EOSINOPHILS PERCENT AUTO 0 % (0-6); Hematocrit 46.8 % (33.0-51.0); Hemoglobin 16.4 g/dL (11.5-16.0); IMMATURE GRAN ABSOLUTE AUTO 1.03 K/mm3 (0.00-0.10); IMMATURE GRAN PERCENT AUTO 3 % (0-1); LYMPHOCYTES ABSOLUTE AUTO 3.43 K/mm3 (0.84-5.20); LYMPHOCYTES PERCENT AUTO 11 % (21-46); MONOCYTES ABSOLUTE AUTO 2.33 K/mm3 (0.16-1.47); MONOCYTES PERCENT AUTO 7 % (4-13); Mean Corpuscular HGB 30.3 pg (26.0-34.0); Mean Corpuscular Volume 86 fL (80-100); Mean Platelet Volume 9.5 fL (9.1-12.4); NEUTROPHILS ABSOLUTE AUTO 24.44 K/mm3 (1.96-9.15); NEUTROPHILS PERCENT AUTO 78 % (41-73); Platelet Count 278 K/mm3 (150-400); RDW Standard Deviation 67.7 fL (35.1-46.3); Red Blood Cell Count 5.42 M/mm3 (3.80-5.20); White Blood Cell Count 31.39 K/mm3 (4.00-11.30)
[2020-06-04 01:32] LABS: Magnesium, Blood 2.3 mg/dL (1.6-2.4)
[2020-06-04 01:33] LABS: Alanine Aminotransfer (ALT/SGP 17 U/L (12-78); Albumin/Globulin Ratio 0.9 (0.8-1.8); Alk Phos 135 U/L (50-136); Anion Gap 10 mmol/L (6-16); Aspartate Aminotrans (AST/SGOT 14 U/L (12-37); Blood Urea Nitrogen 46 mg/dL (8-24); Bun/Creatinine Ratio 47.7 (12.0-20.0); CO2, Blood 24 mmol/L (21-32); Chloride, Blood 95 mmol/L (98-108); Creatinine, Blood 0.96 mg/dL (0.40-1.00); Globulin, Blood 3.5 g/dL (2.2-4.0); Glomerular Filtration Rate 58 (60-); Glucose, Blood 99 mg/dL (70-99); Phosphorus, Blood 2.4 mg/dL (2.5-4.9); Potassium, Blood 4.2 mmol/L (3.5-5.5); Sodium, Blood 129 mmol/L (136-145); Total Protein, Blood 6.5 g/dL (6.4-8.2); Vancomycin, Random <0.8 ug/mL
--- NOTE | 2020-06-04 07:25 | NUR ---
SHIFT SUMMARY NEW ADMIT TO FLOOR LAST NIGHT FOR PNEUMONIA, HYPOXIA & UTI. AOX3, UNAWARE DATE. FOLLOWS SIMPLE DIRECTIONS. TANGETABLE THOUGHTS. VSS. LACTIC ACID CRITIALLY HIGH T/O NIGHT, INFORMED HOSPITALIST NAOMI Ha WHEN LA INCREASED TO 4.O, SHE ORDERED 2L LR SINCE PT DID NOT RECIEVE ANY IV FLUIDS PRIOR TO ARRIVING TO FLOOR. PT ALSO HAD 1 EPISODE 8/10 SHARP L SIDE CHEST PAIN THAT LASTED ROUGHLY 1-2 MIN & REPORTED SOB WHEN PAIN OCCURRED, INFORMED NAOMI Ha & NO NEW ORDERS GIVEN, PT HAS NOT REPORTED ANY FURTHER CP. LUNGS SOUND DIM c COURSE/RHONCI BREATH SOUNDS IN BASES. THIS AM RT CHANGED PT TO 4L NC SINCE SPO2 @98% ON OXIMIZER. TACHYPNIC @TIMES, REPORTS SOB, HAS OCCASIONAL CONGESTED PRODUCTIVE COUGH c YELLOW/WHITE THICK SPUTUM. SPUTUM SAMPLE SENT. COVID TEST NEG. RESP PANEL + RHINO. MEDIPORT ACCESSED PER NAOMI Ha ORDERS. PT REPORTS SHE HAS NOT EATEN ANYTHING FOR PAST 2-3 DAY R/T LACK OF APPETITE & NAUSEA, NO N/V SINCE ADMIT. HAS ILEOSTOMY RLQ c LIQUID BROWN BM. HX COLON CA-LAST CHEMO ROUGHLY 5WK AGO. CALL LIGHT IN REACH.
--- NOTE | 2020-06-04 17:18 | NUR ---
Spiritual care note: Serene was quite talkative and adorable. She seemed confused to me; speaking rapidly on many topics. We prayed together for God's will and peace. I was called to ICU when visited ended. I will continue to see Serene as schedule permits.
--- NOTE | 2020-06-04 17:29 | NUR ---
Brief visit this evening. deputy chief magistrate at bed side. Pt A&OX3. Pt daniel pain at this time. Mild dyspnea noted when speaking. Pt very talkative and appears to experience intermittent confusion. Pt reports living at home with her gradaughter and great grandchildren. Pt occasionally will same something that contradicts previous statements. Plan to call family and offer supportive conversations. Palliative Care will remain available.
--- NOTE | 2020-06-04 19:00 | NUR ---
ASSUMED CARE RECEIVED REPORT FROM DARLINE HUERTA. PT RESTING, IN NO ACUTE DISTRESS. NO ACUTE NEEDS ASSESSED AT THIS TIME. IVF ONGOING. CALL LIGHT, POSSESSIONS IN REACH, BED IN LOW POSITION WITH ALARMS ON. CONTINUE TO MONITOR.
--- NOTE | 2020-06-04 19:30 | NUR ---
THIS RN SPOKE TO ODETTE PADILLA REGARDING PT'S BP AND ORDER RECEIVED FOR K-PHOS. ORDERS RECEIVED. CONTINUE TO MONITOR.
--- NOTE | 2020-06-04 19:58 | NUR ---
END OF SHIFT SUMMARY: PATIENT REPORTED CHEST PAIN AND PAIN UNDER HER RIGHT ARM WITH MOVEMENT OF UPPER EXTREMITIES. DENIES CHEST PAIN AT REST OR WITH AMBULATION. PATIENT [place] [facility] WITH ONE PERSON ASSIST. PATIENT DID NEED TO SIT AT THE EDGE OF THE BED ONCE SITTING UP RELATED TO DIZZINESS. DIZZINESS PASSED WITH REST. PATIENT DENIED SOB OR RESPIRATORY DISTRESS. TRANSITIONED PATIENT TO OK AND WEENED THE PATIENT DOWN TO 3L. PATIENT STABLE AT SPO2>94%. DISCUSSED ISOLATION WITH KEVIN GOMEZ RN. AT THIS TIME, NO ISOLATION INDICATED. PATIENT WORKED WITH PT/OT. PATIENT PASSED SWALLOW EVALUATION WITHOUT CHANGE TO DIET OR CONSISTENCY OF DIET. DISCUSSED THRUSH IN THE MOUTH WITH DR. CHRISTIE THIS AM. NEW ORDERS RECEIVED. PATIENT REPORTS THAT SHE LIVES WITH HER GRANDDAUGHTER. PATIENT HAS A VERY SUPPORTIVE FAMILY. THIS GRANDDAUGHTER REPORTED THAT SHE IS WORKING WITH [employer] TO GET A WHEELCHAIR APPROVED BY INSURANCE FOR HOME USE FOR THE PATIENT. PATIENT MADE STATEMENTS THAT INDICATE SHE IS AWARE THAT SHE MAY NOT HAVE LONG TO LIVE. RN REQUESTED MANDREL CLEANERYANIRA BARBOZA TO ROUND ON THE PATIENT. PALLIATIVE CARE ROUNDED ON PATIENT WELL. PATIENT VERY APPRECIATIVE.
--- NOTE | 2020-06-05 05:52 | NUR ---
SHIFT SUMMARY PT RESTING, IN NO ACUTE DISTRESS, WAS MONITORED EVERY 1-2 HOURS WITH NEEDS MET. VS REVIEWED, BP'S AND 02 SATS STABLE. PT HAS BEEN ASLEEP T/O MUCH OF THE NIGHT. UP TO BSC WITH 1 ASSIST, TOLERATED WELL. DENIES PAIN. NO ACUTE CHANGES IN CONDITION NOTED. PT DENIES NEEDS AT THIS TIME. CALL LIGHT, POSSESSIONS IN REACH, BED IN LOW POSITION WITH ALARMS ON. IVF ONGOING. CONTINUE TO MONITOR, REPORT OFF TO DAY RN.
[2020-06-05 06:18] LABS: Vancomycin, Random 8.9 ug/mL
[2020-06-05 09:26] LABS: BASOPHILS ABSOLUTE AUTO 0.05 K/mm3 (0.00-0.23); BASOPHILS PERCENT AUTO 0 % (0-2); EOSINOPHILS PERCENT AUTO 0 % (0-6); Hematocrit 37.6 % (33.0-51.0); Hemoglobin 12.3 g/dL (11.5-16.0); IMMATURE GRAN ABSOLUTE AUTO 0.77 K/mm3 (0.00-0.10); IMMATURE GRAN PERCENT AUTO 5 % (0-1); LYMPHOCYTES ABSOLUTE AUTO 1.87 K/mm3 (0.84-5.20); LYMPHOCYTES PERCENT AUTO 12 % (21-46); MONOCYTES ABSOLUTE AUTO 0.82 K/mm3 (0.16-1.47); MONOCYTES PERCENT AUTO 5 % (4-13); Mean Corpuscular HGB 29.8 pg (26.0-34.0); Mean Corpuscular HGB Conc 32.7 g/dL (31.5-36.5); NEUTROPHILS ABSOLUTE AUTO 12.11 K/mm3 (1.96-9.15); NEUTROPHILS PERCENT AUTO 78 % (41-73); Platelet Count 206 K/mm3 (150-400); RDW Coefficient Variation 21.2 % (11.7-14.2); Red Blood Cell Count 4.13 M/mm3 (3.80-5.20); White Blood Cell Count 15.62 K/mm3 (4.00-11.30)
[2020-06-05 09:28] LABS: Mean Corpuscular Volume 91 fL (80-100)
[2020-06-05 09:46] LABS: Lactate Dehydrogenase (Ld),Bld 181 U/L (100-240)
[2020-06-05 09:49] LABS: Alanine Aminotransfer (ALT/SGP 11 U/L (12-78); Albumin, Blood 2.3 g/dL (3.4-5.0); Alk Phos 81 U/L (50-136); Anion Gap 7 mmol/L (6-16); Aspartate Aminotrans (AST/SGOT 10 U/L (12-37); Bilirubin, Total 0.3 mg/dL (0.1-1.0); Blood Urea Nitrogen 16 mg/dL (8-24); Bun/Creatinine Ratio 24.7 (12.0-20.0); CO2, Blood 21 mmol/L (21-32); Calcium, Blood 8.1 mg/dL (8.5-10.1); Chloride, Blood 113 mmol/L (98-108); Creatinine, Blood 0.65 mg/dL (0.40-1.00); Globulin, Blood 2.4 g/dL (2.2-4.0); Glomerular Filtration Rate >60 (60-); Glucose, Blood 139 mg/dL (70-99); Potassium, Blood 3.2 mmol/L (3.5-5.5); Total Protein, Blood 4.7 g/dL (6.4-8.2)
[2020-06-05 09:50] LABS: Sodium, Blood 141 mmol/L (136-145)
[2020-06-05 14:01] LABS: Creatinine, Blood 0.73 mg/dL (0.40-1.00); Vancomycin, Random 19.6 ug/mL
--- NOTE | 2020-06-05 16:19 | NUR ---
Spiritual care note: Adele conversation with this delightful woman. She appears quite frail, but her spirit is strong. She spoke at length about her home, her life, and expressed enormous pride for her grand-daughter. She is appreciative of prayer and spiritual ip counsel. She reports hope for more quality time. Compensation Associate Services will remain available.
--- NOTE | 2020-06-05 17:03 | NUR ---
PT LACTIC IS COMING DOWN. SHE IS ALERT AND ORIENTED X3 AND PLEASANT AND COOPERATIVE WITH CARES. PT IS CONTINENT AND ABLE TO EXPRESS ANY NEEDS. SHE HAS HAD NO PAIN , NVD, OR SOB. SHE IS ON 2L O2. NO ACUTE CHANGES. CALL LIGHT WITHIN REACH. WILL CONTINUE TO MONITOR.
--- NOTE | 2020-06-05 18:19 | NUR ---
ADMIT:06/03/20 DISCHARGE: DX: Pneumonia, Hypoxia CC: [email or web address] ADMIT: 02/06/20 DISCHARGE: DX: BOWEL OBSTRUCTION JEF CALL:CALL REHANA FOR JEF, NUMBER BELOW. RESIDENCE: HOME CAREGIVER: REHANA LONG [facility] [phone] STEFANIE LONG (FAMILY MEMBER): DX: COPD, CHF, chronic pain, HTH, PVD, see list DME: Wheelchair, O2 & equipment, walker, see list CCM: NO RECORD HOME HEALTH: [facility] REFERRAL FOR NURSE AND PT- NEW OSTOMY SENT 02/12/20 SUMMARY: Admit 06/03/20 06/05/20 Serene being seen by Dr Lindo today, possible discharge Tuesday. will meet with Serene and call richard for discharge planning on Tuesday. cp 06/04/20 Serene being seen by DR Lebron today. no eta for discharge at this time. Palliative care consult, speech eval, patient does not require swallow precautions. cp 1. Acute hypoxic respiratory failure secondary to pneumonia with chest x-ray demonstrating patchy subsegmental opacities at lung bases. The patient has lactic acidosis and severe leukocytosis. Empiric antimicrobial coverage with Levaquin, Zosyn, and vancomycin. Speech therapy to evaluate for aspiration in a.m. Aggressive IV hydration and follow up lactic acid levels. 2. 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 The patient was intolerant of palliative chemotherapy, which was suspended about three weeks ago. She is DNR status per her wishes.
--- NOTE | 2020-06-05 19:10 | NUR ---
ASSUMED CARE PT RESTING, NO S/S ACUTE DISTRESS NOTED, RESPS E/U. NO ACUTE NEEDS ASSESSED AT THIS TIME. CALL LIGHT, POSSESSIONS IN REACH, CONTINUE TO MONITOR.
--- NOTE | 2020-06-05 19:55 | NUR ---
ODETTE PADILLA, NOTIFIED OF PT'S CRITICAL LACTIC ACID. ORDERS RECEIVED. CONTINUE TO MONITOR.
--- NOTE | 2020-06-05 19:56 | NUR ---
ODETTE PADILLA, INFORMED OF PT'S SOFT BP'S. ORDERS RECEIVED. CONTINUE TO MONITOR.
--- NOTE | 2020-06-06 04:04 | NUR ---
SHIFT SUMMARY PT ASLEEP, IN NO ACUTE DISTRESS. VS REVIEWED, WNL. PT HAS BEEN SLEEPING T/O MUCH OF THE NIGHT. LACTIC ACID DOWN FROM BEGINNING OF SHIFT. BP'S IMPROVED. O2 SATS STABLE ON 3L/NC. NO OTHER ACUTE CHANGES IN CONDITION. NO ACUTE NEEDS ASSESSED. CALL LIGHT, POSSESSIONS IN REACH, BED IN LOW POSITION WITH ALARMS ON. CONTINUE TO MONITOR, REPORT OFF TO DAY RN.
[2020-06-06 06:09] LABS: Hematocrit 34.4 % (33.0-51.0); Hemoglobin 11.2 g/dL (11.5-16.0); Mean Corpuscular HGB 29.6 pg (26.0-34.0); Mean Corpuscular HGB Conc 32.6 g/dL (31.5-36.5); Mean Corpuscular Volume 91 fL (80-100); Mean Platelet Volume 9.9 fL (9.1-12.4); Platelet Count 209 K/mm3 (150-400); RDW Coefficient Variation 21.6 % (11.7-14.2); RDW Standard Deviation 75.6 fL (35.1-46.3); Red Blood Cell Count 3.79 M/mm3 (3.80-5.20); White Blood Cell Count 13.68 K/mm3 (4.00-11.30)
[2020-06-06 06:38] LABS: Alanine Aminotransfer (ALT/SGP 12 U/L (12-78); Albumin/Globulin Ratio 0.8 (0.8-1.8); Alk Phos 75 U/L (50-136); Anion Gap 4 mmol/L (6-16); Aspartate Aminotrans (AST/SGOT 8 U/L (12-37); Bilirubin, Total 0.6 mg/dL (0.1-1.0); Blood Urea Nitrogen 11 mg/dL (8-24); Bun/Creatinine Ratio 17.6 (12.0-20.0); CO2, Blood 27 mmol/L (21-32); Chloride, Blood 111 mmol/L (98-108); Creatinine, Blood 0.62 mg/dL (0.40-1.00); Globulin, Blood 2.5 g/dL (2.2-4.0); Glomerular Filtration Rate >60 (60-); Glucose, Blood 86 mg/dL (70-99); Potassium, Blood 3.8 mmol/L (3.5-5.5); Sodium, Blood 142 mmol/L (136-145); Total Protein, Blood 4.5 g/dL (6.4-8.2); Vancomycin, Random 9.7 ug/mL
[2020-06-06 07:03] LABS: BAND PERCENT MAN 2 % (0-8); BASOPHILS PERCENT MAN 0 % (0-2); EOSINOPHILS PERCENT MAN 0 % (0-6); LYMPHOCYTES ABSOLUTE MAN 1.77 K/mm3 (0.84-5.20); LYMPHOCYTES PERCENT MAN 13 % (21-46); METAMYELOCYTE ABSOLUTE MAN 0.13 K/mm3 (0.00-0.00); METAMYELOCYTE PERCENT MAN 1 % (0-0); MONOCYTES ABSOLUTE MAN 0.95 K/mm3 (0.16-1.47); MONOCYTES PERCENT MAN 7 % (4-13); MYELOCYTE ABSOLUTE MAN 0.41 K/mm3 (0.00-0.00); MYELOCYTE PERCENT MAN 3 % (0-0); NEUTROPHILS ABSOLUTE MAN 10.39 K/mm3 (1.96-9.15); SEG NEUTROPHILS PERCENT MAN 74 % (41-73); TOTAL CELLS COUNTED 100
[2020-06-06] MEDS ORDERED: MELATONIN5 M1 PO (17:12)
--- NOTE | 2020-06-06 17:18 | NUR ---
SUMMARY: Admit 06/03/20 06/06/20 Discharge home, [facility] to pick her up. [facility] resumed, s/w Summer at [facility]. Call Karla for transition of care and 1 week follow up appointment. No care coordination needed at time of discharge. cp
--- NOTE | 2020-06-06 17:47 | NUR ---
PT TO DISCHARGE HOME ON HH. NO NEW MEDS . GRANDDAUGHTER IN ROOM WITH DISCHARGE NURSE. PORT DEACCESSED. NO SS OF INFECTION NOTED. PT DRESSED BY STAFF AND WHEELED OUT. [facility] TO FOLLOW UP WITH PCP FOLLOW UP.
== END 2020-06-06 17:29 | disposition home health service (06) | DRG 189 ==
LOC: ER 14:39 → ERHOLD 14:40 → MEDS 19:59
PROVIDERS: Pharmacist; Physician Assistant; ADMIT Hospitalist
DX: J96.01 Acute respiratory failure with hypoxia (principal); C78.00 Secondary malignant neoplasm of unspecified lung; E87.2 Acidosis; C18.2 Malignant neoplasm of ascending colon; C78.6 Secondary malignant neoplasm of retroperitoneum and peritoneum; B37.0 Candidal stomatitis; N39.0 Urinary tract infection, site not specified; Z20.822 Contact with and (suspected) exposure to COVID-19; J44.9 Chronic obstructive pulmonary disease, unspecified; I73.9 Peripheral vascular disease, unspecified; K21.9 Gastro-esophageal reflux disease without esophagitis; Z99.81 Dependence on supplemental oxygen; Z66 Do not resuscitate; Z87.891 Personal history of nicotine dependence; Z93.2 Ileostomy status; B97.89 Other viral agents as the cause of diseases classified elsewhere; Z92.21 Personal history of antineoplastic chemotherapy; E83.39 Other disorders of phosphorus metabolism; R13.10 Dysphagia, unspecified; F03.90 Unspecified dementia, unspecified severity, without behavioral disturbance, psychotic disturbance, mood disturbance, and anxiety; E78.5 Hyperlipidemia, unspecified; I11.0 Hypertensive heart disease with heart failure; I50.9 Heart failure, unspecified
CPT/HCPCS: 0202U; 36415; 71045; 71046; 71260; 80053; 80202; 81001; 82550; 82565; 82728; 83605; 83615; 83735; 83880; 84100; 84145; 84484; 85025; 85379; 86140; 87040; 87070; 87086; 87205; 92610; 93005; 93010; 94640; 94667; 94760; 96365; 96366; 96367; 97110; 97116; 97162; 97165; 97530; 97535; 99285-25; A9270; J0295; J0696; J1642; J1650; J1956; J2543; J3370; J3480; J7030; J7050; J7120; Q9967

== ENCOUNTER 2020-06-15 19:49 | Emergency (ER) | payer MEDICARE, OTHER ==
[~2020-06-15] VITALS: Ht 162.6 cm; Wt 51.7 kg
[~2020-06-15 19:49] MED LIST changes: +A AND D OINTM42.5 GM TOP; +ACET500 PT; +DEXA4 PO; +MELATONIN5 M1 PO; +Norco 7.5-3251 EACH PO; +ONDA8 PO; +SUCRALFATE PO
== END 2020-06-15 22:56 | disposition home or self-care (01) ==
LOC: ER 19:49
DX: S22.32XA Fracture of one rib, left side, initial encounter for closed fracture (principal); J81.1 Chronic pulmonary edema; E78.5 Hyperlipidemia, unspecified; I11.0 Hypertensive heart disease with heart failure; I50.9 Heart failure, unspecified; K21.9 Gastro-esophageal reflux disease without esophagitis; F17.200 Nicotine dependence, unspecified, uncomplicated; Z79.899 Other long term (current) drug therapy; W19.XXXA Unspecified fall, initial encounter
CPT/HCPCS: 71101; 93005; 93010; 99283-25; A9270